=== PATIENT | female | born 1990 | race Caucasian/White ===

== ENCOUNTER 2017-02-24 20:31 | Emergency (ER) | payer MEDICAID, OTHER ==
[~2017-02-24] VITALS: Ht 167.6 cm; Wt 69.5 kg
[~2017-02-24 20:31] MED LIST: IBUP-1222 PO; OXYC-302 PO
[2017-02-24] MEDS ORDERED: SODIUM CHLORIDE FLUSH 10ML SYR IVF ONE (21:00)
[2017-02-24 21:10] LABS: HEMATOCRIT 41.2 % (34.6-47.8); HEMOGLOBIN 14.1 g/dL (11.7-16.4); WHITE BLOOD COUNT 13.8 x10^3/uL (3.4-10)
[2017-02-24 21:23] LABS: ASPARTATE AMINO TRANSFERASE 13 U/L (15-37); BLOOD UREA NITROGEN 4 mg/dL (7-18)
[2017-02-24 21:25] LABS: PATH.CAST-FLAG NOT PRESENT; SPERM-FLAG NOT PRESENT; SRC-FLAG NOT PRESENT; XTAL-FLAG NOT PRESENT; YLC-FLAG NOT PRESENT
[2017-02-24] MEDS ORDERED: OXYcodone/APAP 10/325MG TABLET ONE (21:47)
[2017-02-24] MEDS ORDERED: KETOROLAC 30 MG/1 ML ONE ×2 (21:47→22:16)
[2017-02-24] MEDS ORDERED: OXYcodone/APAP 10/325MG TABLET PO ONE (22:00)
[2017-02-24] MEDS ORDERED: KETOROLAC 30 MG/1 ML IM ONE (22:00)
[2017-02-25 00:01] VITALS: BP 124/87
== END 2017-02-25 00:17 | disposition home or self-care (01) ==
LOC: ED 21:02
DX: N30.01 Acute cystitis with hematuria (principal)
CPT/HCPCS: 36415; 76830; 80053; 81001; 84703; 85025; 87086; 96372; 99285; J1885